=== PATIENT | male | born 2000 | race Caucasian/White ===

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

== ENCOUNTER 2022-03-15 06:30 | Emergency (ER) | payer OTHER ==
[2022-03-15] MEDS ORDERED: Boostrix 0.5 ML (Tdap) VIAL ONE (06:38)
[2022-03-15] MEDS ORDERED: Fentanyl 100 MCG/2 ML VIAL ONE (06:40)
[2022-03-15] MEDS ORDERED: Lidocaine 1% MPF 2 ML VIAL ONE (06:44)
[2022-03-15] MEDS ORDERED: Lidocaine 1% PF 5 ML VIAL ONE (06:45)
[2022-03-15] MEDS ORDERED: hydrALAZINE 20 MG/ML VIAL SLOW IVP PRN (06:56)
[2022-03-15] MEDS ORDERED: Promethazine HCl 25 MG/ML VIAL IM PRN (06:56)
[2022-03-15] MEDS ORDERED: Morphine 2 MG/ML VIAL SLOW IVP PRN (06:56)
[2022-03-15] MEDS ORDERED: Ondansetron PF 4 MG/2 ML Vial IVP PRN (06:56)
[2022-03-15] MEDS ORDERED: traMADol HCl 50 MG TAB PO PRN (06:59)
[2022-03-15] MEDS ORDERED: Acetaminophen 500 MG TAB PO SCH (07:00)
[2022-03-15] MEDS ORDERED: Sodium Chloride 0.9% 1,000 ML IV SCH (07:00)
[2022-03-15] MEDS ORDERED: CEFAZOLIN 2 GM in Sodium Chloride 0.9% 100 ML IVPB SCH (07:00)
[2022-03-15 07:26] LABS: Acetaminophen Less than 10.0 mcg/mL (10.0-30.0); Alcohol 147 mg/dL (Less than 10); Salicylate Less than 8.0 mg/dL (15.0-30.0)
[2022-03-15 07:28] LABS: ALT (SGPT) 19 U/L (8-55); AST (SGOT) 33 U/L (5-34); Albumin 4.8 g/dL (3.5-5.0); Alkaline Phosphatase 68 U/L (40-110); Anion Gap 19 mmol/L (10-20); BUN (Urea Nitrogen) 6 mg/dL (8.9-20.6); Bilirubin, Total 0.6 mg/dL (0.2-1.2); Calc. Creatinine Clearance 0 mL/min (70-130); Calcium 9.6 mg/dL (7.8-10.44); Carbon Dioxide 25 mmol/L (22-29); Chloride 102 mmol/L (98-107); Estimated GFR 125; Globulin 2.9 g/dL (2.4-3.5); Glucose 120 mg/dL (70-105); Lipase 24 U/L (8-78); Potassium 3.9 mmol/L (3.5-5.1); Protein, Total 7.7 g/dL (6.0-8.3); Sodium 142 mmol/L (136-145)
[2022-03-15 07:53] LABS: #Lymphocytes 1.3 thou/uL (1.20-3.40); #Neutrophils 11.7 thou/uL (1.40-6.50); %Basophils 0.2 % (0.0-1.0); %Eosinophils 0.2 % (0.0-10.0); %Lymphocytes 9.2 % (21.0-51.0); %Monocytes 7.2 % (0.0-10.0); %Neutrophils 83.2 % (42.0-75.0); Band 11 % (5-11); Hemoglobin 16.5 g/dL (14.0-18.0); Lymphocytes 15 % (21-51); MDiff Complete? YES; Mean Corpuscular HGB CONC 33.8 g/dL (32.0-36.0); Mean Corpuscular Hemoglobin 31.1 pg (27.0-31.0); Mean Corpuscular Volume 92.2 fL (78.0-98.0); Mean Platelet Volume 8.4 fL (7.4-10.4); Monocytes 4 % (0-10); Neutrophil 69 % (42-75); Platelet Count 114 thou/uL (130-400); Platelet Morphology Comment Appears Decreased; RBC Distribution Width 12.4 % (11.5-14.5); RBC Morphology Normal; Reactive Lymphocytes 1 % (0-10); White Blood Cell (WBC) Count 14.1 thou/uL (4.8-10.8)
[2022-03-15] MEDS ORDERED: Polyethylene Glycol 3350 17 GM Packet PO SCH (09:00)
[2022-03-15] MEDS ORDERED: Famotidine/PF 20 mg/2ml Vial SLOW IVP SCH (09:00)
[2022-03-15] MEDS ORDERED: Senokot S 8.6-50 MG TAB PO SCH (09:00)
[2022-03-15] MEDS ORDERED: Ondansetron PF 4 MG/2 ML Vial ONE ×2 (09:50→11:33)
[2022-03-15 10:54] LABS: SARS-CoV-2 NAA Rapid Test Not Detected (NotDetected)
[2022-03-15] MEDS ORDERED: Morphine 4 MG/ML VIAL ONE (11:27)
[2022-03-15] MEDS ORDERED: Venlafaxine 75 MG TAB PO SCH (11:45)
[2022-03-15] MEDS ORDERED: traMADol HCl 50 MG TAB PO SCH (12:00)
[2022-03-15] MEDS ORDERED: Iopamidol 370 76% 100 ML VIAL ONE (14:15)
== END 2022-03-15 12:00 | disposition short-term general hospital (02) ==
LOC: ERS 06:30
DX: S62.612A Displaced fracture of proximal phalanx of right middle finger, initial encounter for closed fracture (principal); S62.614A Displaced fracture of proximal phalanx of right ring finger, initial encounter for closed fracture; S62.616A Displaced fracture of proximal phalanx of right little finger, initial encounter for closed fracture; Z20.822 Contact with and (suspected) exposure to COVID-19; V49.9XXA Car occupant (driver) (passenger) injured in unspecified traffic accident, initial encounter
CPT/HCPCS: 64450; 70450; 71260; 72125; 74177; 80053; 80307; 83690; 85025; 90471; 90715; 93005; 96374; 96375; 96376; G0390; J0690; J2270; J2405; J3010; J3490; Q9967; U0002

== ENCOUNTER 2022-03-29 12:36 | Emergency (ER) | payer OTHER | END 2022-03-29 14:32 | disposition home or self-care (01) | LOC: ERS 12:36 | DX: S06.0X9A Concussion with loss of consciousness of unspecified duration, initial encounter (principal); S00.411A Abrasion of right ear, initial encounter; V89.2XXA Person injured in unspecified motor-vehicle accident, traffic, initial encounter | CPT/HCPCS: 99283 ==

== ENCOUNTER 2023-01-09 22:03 | Emergency (ER) | payer OTHER ==
[2023-01-09] MEDS ORDERED: Bacitracin 1 PK ONE (23:02)
== END 2023-01-09 23:34 | disposition home or self-care (01) ==
LOC: ERS 22:03
DX: S06.9X1A Unspecified intracranial injury with loss of consciousness of 30 minutes or less, initial encounter (principal); S61.210A Laceration without foreign body of right index finger without damage to nail, initial encounter; R55 Syncope and collapse; W18.30XA Fall on same level, unspecified, initial encounter
CPT/HCPCS: 70450; 93005